=== PATIENT | female | born 1985 | race Caucasian/White ===

== ENCOUNTER 2017-03-26 14:20 | Emergency (ER) | payer MEDICAID ==
[~2017-03-26] VITALS: Ht 162.6 cm; Wt 86.4 kg
[~2017-03-26 14:20] MED LIST: ONDA4TAB7 PO; TRAM50TA4 PO
[2017-03-26] MEDS ORDERED: KETOROLAC TROMETHAMINE 30 MG/ML VIAL IVP ONE (15:30)
[2017-03-26] MEDS ORDERED: SODIUM CHLORIDE 0.9% 1,000 ML IV ONE (15:30)
[2017-03-26] MEDS ORDERED: METOCLOPRAMIDE HCL 5 MG/ML 2 ML VIAL IVP ONE (15:30)
[2017-03-26] MEDS ORDERED: IBUP-2070 PO (15:30)
[2017-03-26 16:05] LABS: BASOPHILS % (AUTO) 0.6 % (0.0-2.0); EOSINOPHILS % (AUTO) 1.2 % (1.0-6.0); HEMATOCRIT 42.9 % (36-46); HEMOGLOBIN 14.1 g/dL (12.0-16.0); LYMPHOCYTES # (AUTO) 3.2 K/uL (1.0-4.8); LYMPHOCYTES % (AUTO) 30.7 % (22.0-44.0); MEAN CORPUSCULAR HEMOGLOBIN 29.6 pg (26.0-34.0); MEAN CORPUSCULAR HGB CONC 32.8 G/dL (31.0-37.0); MEAN CORPUSCULAR VOLUME 90 fL (80-100); MONOCYTES # (AUTO) 0.6 K/uL (0.1-1.0); MONOCYTES % (AUTO) 5.7 % (2.0-9.0); NEUTROPHILS # (AUTO) 6.5 K/uL (1.8-7.7); NEUTROPHILS % (AUTO) 61.8 % (40.0-70.0); PLATELET COUNT (AUTO) 244 K/uL (150-450); RED BLOOD CELL COUNT(AUTO) 4.76 MIL/uL (4.00-5.20); RED CELL DISTRIBUTION WIDTH 12.7 % (11.5-14.5); WHITE BLOOD COUNT (AUTO) 10.5 K/uL (4.5-11.0)
[2017-03-26 16:14] LABS: ANION GAP 10 mmol/L (8-16); CALCIUM, TOTAL 8.8 mg/dL (8.8-10.5); CARBON DIOXIDE 25 mmol/L (22-29); CHLORIDE 101 mmol/L (98-107); CREATININE 0.79 mg/dL (0.60-1.30); GLOMERULAR FILTR. RATE CALC > 60 mL/min (>60); POTASSIUM 4.1 mmol/L (3.5-5.1); SODIUM SERUM 136 mmol/L (136-145); UREA NITROGEN, BLOOD 12 mg/dL (7-18)
[2017-03-26 16:19] LABS: ALANINE AMINOTRANSFERASE 29 U/L (12-78); ALBUMIN 3.9 g/dL (3.4-5.0); ASPARTATE AMINOTRANSFERASE 20 U/L (15-37); BILIRUBIN,TOTAL 0.6 mg/dL (0.1-1.0); TOTAL PROTEIN, SERUM 7.5 g/dL (6.4-8.2)
[2017-03-26 16:22] VITALS: BP 120/68
== END 2017-03-26 17:05 | disposition home or self-care (01) ==
LOC: EMS 14:21
DX: R51 Headache (principal); R11.0 Nausea; R42 Dizziness and giddiness; R20.0 Anesthesia of skin
CPT/HCPCS: 36415; 80053; 85025; 96361; 96374; 96375; 99284; J1885; J2765; J7030

== ENCOUNTER 2019-03-16 10:09 | Emergency (ER) | payer MEDICAID, OTHER ==
[~2019-03-16] VITALS: Ht 152.4 cm; Wt 93.2 kg
[~2019-03-16 10:09] MED LIST changes: +IBUP-2070 PO; -ONDA4TAB7 PO; -TRAM50TA4 PO
[2019-03-16] MEDS ORDERED: LOSA25TA41 PO (10:28)
[2019-03-16] MEDS ORDERED: LOSARTAN POTASSIUM 25 MG TABLET PO ONE (12:00)
[2019-03-16] MEDS ORDERED: ACETAMINOPHEN 325 MG TABLET PO ONE (12:00)
[2019-03-16 12:27] VITALS: BP 129/78
== END 2019-03-16 12:29 | disposition home or self-care (01) ==
LOC: EMS 10:11
DX: R51 Headache (principal); I10 Essential (primary) hypertension; Z76.0 Encounter for issue of repeat prescription

== ENCOUNTER 2019-07-31 22:32 | Emergency (ER) | payer OTHER ==
[~2019-07-31] VITALS: Ht 162.6 cm; Wt 40.9 kg
[~2019-07-31 22:32] MED LIST changes: +LOSA25TA41 PO
[2019-08-01 01:06] LABS: NEUTROPHILS # (AUTO) 9.1 K/uL (1.8-7.7)
[2019-08-01 01:09] LABS: BASOPHILS % (AUTO) 1.1 % (0.0-2.0); EOSINOPHILS % (AUTO) 0.5 % (1.0-6.0); HEMATOCRIT 43.1 % (36-46); HEMOGLOBIN 14.8 g/dL (12.0-16.0); LYMPHOCYTES % (AUTO) 23.3 % (22.0-44.0); MEAN CORPUSCULAR HEMOGLOBIN 30.6 pg (26.0-34.0); MEAN CORPUSCULAR HGB CONC 34.3 G/dL (31.0-37.0); MEAN CORPUSCULAR VOLUME 89 fL (80-100); MONOCYTES # (AUTO) 0.7 K/uL (0.1-1.0); MONOCYTES % (AUTO) 5.6 % (2.0-9.0); NEUTROPHILS % (AUTO) 69.5 % (40.0-70.0); PLATELET COUNT (AUTO) 291 K/uL (150-450); RED BLOOD CELL COUNT(AUTO) 4.82 MIL/uL (4.00-5.20)
[2019-08-01 01:14] LABS: ANION GAP 10 mmol/L (8-16); CARBON DIOXIDE 28 mmol/L (22-29); CHLORIDE 100 mmol/L (98-107); CREATININE 0.73 mg/dL (0.60-1.30); GLOMERULAR FILTR. RATE CALC > 60 mL/min (>60); GLUCOSE,RANDOM 115 mg/dL (70-110); POTASSIUM 4.1 mmol/L (3.5-5.1); SODIUM SERUM 138 mmol/L (136-145); UREA NITROGEN, BLOOD 7 mg/dL (7-18)
[2019-08-01] MEDS ORDERED: KETOROLAC TROMETHAMINE 60 MG/2 ML VIAL IM ONE (01:15)
[2019-08-01 01:26] LABS: ALANINE AMINOTRANSFERASE 19 U/L (12-78); ALBUMIN 4.4 g/dL (3.4-5.0); ALKALINE PHOSPHATASE 67 U/L (46-116); ASPARTATE AMINOTRANSFERASE 15 U/L (15-37); BILIRUBIN,TOTAL 0.7 mg/dL (0.1-1.0); HCG,QUANTITATIVE < 1 mIU/mL (0-6); TOTAL PROTEIN, SERUM 8.2 g/dL (6.4-8.2)
[2019-08-01 02:18] VITALS: BP 132/79
== END 2019-08-01 02:20 | disposition home or self-care (01) ==
LOC: EMS 22:33
DX: S16.1XXA Strain of muscle, fascia and tendon at neck level, initial encounter (principal); M25.512 Pain in left shoulder; R07.89 Other chest pain; I10 Essential (primary) hypertension; X58.XXXA Exposure to other specified factors, initial encounter; Y93.89 Activity, other specified; Y92.89 Other specified places as the place of occurrence of the external cause; Y99.8 Other external cause status
CPT/HCPCS: 36415; 71045; 80053; 84484; 84702; 85025; 93005; 96372; 99284; J1885

== ENCOUNTER 2021-11-07 09:36 | Emergency (ER) | payer OTHER ==
[~2021-11-07] VITALS: Ht 160 cm; Wt 200.0 kg
[~2021-11-07 09:36] MED LIST changes: +LOSA-370 PO; -LOSA25TA41 PO
[2021-11-07] MEDS ORDERED: DiphenhydrAMINE HCL 25 MG CAPSULE PO ONE (10:15)
[2021-11-07] MEDS ORDERED: ACETAMINOPHEN 500 MG TABLET PO ONE (10:15)
[2021-11-07] MEDS ORDERED: METOCLOPRAMIDE HCL 10 MG TABLET PO ONE (10:15)
[2021-11-07] MEDS ORDERED: LIDOCAINE 5% TRANSDERMAL PATCH TD ONE (10:15)
[2021-11-07] MEDS ORDERED: KETOROLAC TROMETHAMINE 30 MG/ML VIAL IM ONE (10:15)
[2021-11-07] MEDS ORDERED: DEXAMETHASONE SOD PHOS 4 MG/ML 5 ML VIAL IM ONE (10:15)
[2021-11-07] MEDS ORDERED: CYCL10TA17 PO (12:48)
[2021-11-07] MEDS ORDERED: IBUP-2070 PO (12:48)
[2021-11-07] MEDS ORDERED: LIDO700A15 TP (12:48)
[2021-11-07 13:21] VITALS: BP 145/71
[2021-11-07 13:57] LABS: COVID AG,FIA SOURCE NASOPHARYNGEAL
== END 2021-11-07 13:23 | disposition home or self-care (01) ==
LOC: EMS 09:39
DX: S16.1XXA Strain of muscle, fascia and tendon at neck level, initial encounter (principal); R51.9 Headache, unspecified; I10 Essential (primary) hypertension; K85.90 Acute pancreatitis without necrosis or infection, unspecified; X58.XXXA Exposure to other specified factors, initial encounter; Y93.89 Activity, other specified; Y92.89 Other specified places as the place of occurrence of the external cause; Y99.8 Other external cause status; Z20.822 Contact with and (suspected) exposure to COVID-19
CPT/HCPCS: 87426; 93005; 96372; 99284; C9803; J1100; J1885; U0003

== ENCOUNTER 2023-04-09 00:47 | Emergency (ER) | payer OTHER ==
[~2023-04-09] VITALS: Ht 160 cm; Wt 96.0 kg
[~2023-04-09 00:47] MED LIST changes: +CYCL-448 PO; +IBUP-1492 PO; -IBUP-2070 PO; +LIDO700A15 TP; -LOSA-370 PO; +LOSA-381 PO
[2023-04-09 01:28] LABS: BASOPHILS % (AUTO) 1.9 % (0.0-2.0); EOSINOPHILS % (AUTO) 3.5 % (1.0-6.0); HEMATOCRIT 40.5 % (36-46); HEMOGLOBIN 13.7 g/dL (12.0-16.0); LYMPHOCYTES # (AUTO) 3.5 K/uL (1.0-4.8); LYMPHOCYTES % (AUTO) 35.9 % (22.0-44.0); MEAN CORPUSCULAR HEMOGLOBIN 30.8 pg (26.0-34.0); MEAN CORPUSCULAR HGB CONC 33.9 G/dL (31.0-37.0); MEAN CORPUSCULAR VOLUME 91 fL (80-100); MONOCYTES # (AUTO) 0.6 K/uL (0.1-1.0); MONOCYTES % (AUTO) 5.8 % (2.0-9.0); NEUTROPHILS # (AUTO) 5.1 K/uL (1.8-7.7); NEUTROPHILS % (AUTO) 52.9 % (40.0-70.0); PLATELET COUNT (AUTO) 256 K/uL (150-450); RED BLOOD CELL COUNT(AUTO) 4.46 MIL/uL (4.00-5.20); RED CELL DISTRIBUTION WIDTH 13.2 % (11.5-14.5)
[2023-04-09 01:38] LABS: ANION GAP 9 mmol/L (8-16); CALCIUM, TOTAL 8.7 mg/dL (8.8-10.5); CARBON DIOXIDE 25 mmol/L (22-29); CHLORIDE 102 mmol/L (98-107); CREATININE 0.76 mg/dL (0.60-1.30); GLOMERULAR FILTR. RATE CALC > 60 mL/min (>60); GLUCOSE,RANDOM 121 mg/dL (70-110); POTASSIUM 3.6 mmol/L (3.5-5.1); SODIUM SERUM 136 mmol/L (136-145)
[2023-04-09 01:44] LABS: ALANINE AMINOTRANSFERASE 28 U/L (12-78); ALBUMIN 3.6 g/dL (3.4-5.0); ALKALINE PHOSPHATASE 67 U/L (46-116); ASPARTATE AMINOTRANSFERASE 15 U/L (15-37); BILIRUBIN,TOTAL 0.6 mg/dL (0.1-1.0); LIPASE 330 U/L (73-393); TOTAL PROTEIN, SERUM 7.5 g/dL (6.4-8.2)
[2023-04-09 02:52] LABS: AMPHET/METH SCREEN,URINE NEGATIVE (NEGATIVE); BARBITURATE SCREEN, URINE NEGATIVE (NEGATIVE); BENZODIAZEPINES SCREEN,URINE NEGATIVE (NEGATIVE); CANNABINOID SCREEN,URINE NEGATIVE (NEGATIVE); COCAINE SCREEN,URINE NEGATIVE (NEGATIVE); METHADONE SCREEN, URINE NEGATIVE (NEGATIVE); OPIATE SCREEN,URINE NEGATIVE (NEGATIVE); PHENCYCLIDINE SCREEN,URINE NEGATIVE (NEGATIVE)
[2023-04-09] MEDS ORDERED: MELA3TAB89 PO (03:28)
[2023-04-09] MEDS ORDERED: ACET-66 PO (03:28)
[2023-04-09] MEDS ORDERED: DIPH50CA37 PO (03:28)
[2023-04-09] MEDS ORDERED: IBUP-1554 PO (03:28)
[2023-04-09 03:30] VITALS: BP 132/71
[2023-04-09] MEDS ORDERED: IBUPROFEN 600 MG TABLET PO ONE (03:30)
[2023-04-09] MEDS ORDERED: ACETAMINOPHEN 500 MG TABLET PO ONE (03:30)
== END 2023-04-09 04:43 | disposition home or self-care (01) ==
LOC: EMS 00:48
DX: F41.9 Anxiety disorder, unspecified (principal); F43.0 Acute stress reaction; I10 Essential (primary) hypertension
CPT/HCPCS: 99283; 80053; 83690; 84703; 85025; 36415; 80307 ×2; G0480